=== PATIENT | female | born 1975 | race Caucasian/White ===

== ENCOUNTER 2017-10-19 09:45 | Outpatient (CLI) | payer MEDICARE ==
--- NOTE | 2017-10-19 11:01 | RAD ---
FOUR VIEWS CERVICAL SPINE: Date: 10-19-17 History: Post-surgical pain to right arm in the C3-4 and C4-5 distributions. Comparison: 09-08-17 FINDINGS: There has been interval post-surgical change related to anterior cervical fusion of the C5-6 and C6-7 levels with anterior plates and screws transfixing these levels. Intradiscal prostheses are present. No hardware complication is seen. T1 vertebral body is obscured and the cervicothoracic junction is unable to be evaluated. No fracture or subluxation is seen from C1 to C7. Prevertebral soft tissues a re within normal limits. IMPRESSION: 1. Interval post-surgical changes related to anterior cervical fusion of C5 through C7. No hardware c omplication is seen. 2. Nonvisualization of the cervicothoracic junction. POS: JESSICA
== END 2017-10-19 09:46 | disposition home or self-care (01) ==
LOC: NAV RAD 09:45
PROVIDERS: ATTEND Neurological Surgery
DX: M50.30 Other cervical disc degeneration, unspecified cervical region (principal); Z98.1 Arthrodesis status
CPT/HCPCS: 72040

== ENCOUNTER 2022-06-03 10:34 | Emergency (ER) | payer MEDICAID, OTHER ==
[2022-06-03] MEDS ORDERED: Ketorolac Tromethamine 30 MG/ML VIAL ONE (11:19)
[2022-06-03] MEDS ORDERED: Sodium Chloride 0.9% 1,000 ML ONE (11:19)
[2022-06-03] MEDS ORDERED: Metoclopramide HCl 10 MG/2 ML VIAL ONE (11:19)
[2022-06-03 11:27] LABS: Bilirubin Negative (Negative); Blood, Urine Negative (Negative); Clarity Clear (Clear); Glucose, Urine (Dipstick) Negative (Negative); Ketone, Urine Negative (Negative); Leukocyte Negative (Negative); Nitrite Negative (Negative); Specific Gravity, Urine 1.025 (1.005-1.030); Urobilinogen 0.2 mg/dL (Less than 2); pH, Urine 5.5 (5.0-9.0)
[2022-06-03 11:28] LABS: Protein, Urine (Dipstick) Trace mg/dL (Neg-Trace)
[2022-06-03 11:44] LABS: #Basophils 0.1 thou/uL (0.0-0.2); #Eosinphils 0.1 thou/uL (0.0-0.7); #Monocytes 0.9 thou/uL (0.11-0.59); #Neutrophils 6.2 thou/uL (1.40-6.50); %Basophils 1.4 % (0.0-1.0); %Eosinophils 0.9 % (0.0-10.0); %Lymphocytes 28.7 % (21.0-51.0); %Monocytes 8.9 % (0.0-10.0); %Neutrophils 60.2 % (42.0-75.0); Hemoglobin 12.9 g/dL (12.0-16.0); Mean Corpuscular HGB CONC 30.1 g/dL (32.0-36.0); Mean Corpuscular Hemoglobin 26.3 pg (27.0-31.0); Mean Corpuscular Volume 87.6 fl (78.0-98.0); Mean Platelet Volume 6.6 fL (7.4-10.4); Platelet Count 543 10x3/uL (130-400); RBC Distribution Width 17.8 % (11.5-14.5); Red Blood Cell (RBC) Count 4.91 mill/uL (4.20-5.40); White Blood Cell (WBC) Count 10.4 10x3/uL (4.8-10.8)
[2022-06-03 11:58] LABS: ALT (SGPT) 17 U/L (8-55); AST (SGOT) 20 U/L (5-34); Albumin 4.3 g/dL (3.5-5.0); Alkaline Phosphatase 105 U/L (40-110); Anion Gap 22 mmol/L (10-20); BUN (Urea Nitrogen) 60 mg/dL (7.0-18.7); Bilirubin, Total 0.1 mg/dL (0.2-1.2); Calc. Creatinine Clearance 0 mL/min (70-130); Calcium 8.5 mg/dL (7.8-10.44); Carbon Dioxide 17 mmol/L (22-29); Chloride 101 mmol/L (98-107); Estimated GFR 15; Globulin 3.5 g/dL (2.4-3.5); Glucose 96 mg/dL (70-105); Potassium 4.1 mmol/L (3.5-5.1); Protein, Total 7.8 g/dL (6.0-8.3); Sodium 136 mmol/L (136-145)
== END 2022-06-03 13:20 | disposition home or self-care (01) ==
LOC: NAV ERS 10:34
DX: E86.0 Dehydration (principal); N28.9 Disorder of kidney and ureter, unspecified; D75.839 Thrombocytosis, unspecified; I10 Essential (primary) hypertension; E78.00 Pure hypercholesterolemia, unspecified; F17.210 Nicotine dependence, cigarettes, uncomplicated; Z79.899 Other long term (current) drug therapy
CPT/HCPCS: 80053; 81003; 85025; 87804 ×2; 96365; 96375; 99284; U0003; U0005; J1885; J2765; J7050